=== PATIENT | female | born 1955 | race Caucasian/White ===

== ENCOUNTER 2017-09-13 05:29 | Day surgery (SDC) | payer OTHER ==
[~2017-09-13] VITALS: Ht 160 cm; Wt 81.6 kg
--- NOTE | ~2017-09-13 | OP ---
PATIENT NAME: ISMAEL BAÑUELOS MEDICAL RECORD: [id number] LOCATION:[facility] ADMISSION DATE: SURGEON: RUPERTO YANEZ MD DATE OF OPERATION: 09/13/2017 PREOPERATIVE DIAGNOSIS: Anal polypoid mass. POSTOPERATIVE DIAGNOSIS: Anal polypoid mass. PROCEDURE: Transanal excision of an anal polypoid mass. SURGEON: Ruperto Yanez MD SPEECH WRITER: None. BLOOD LOSS: Minimal. ANESTHESIA: General. COMPLICATIONS: None. The risks, possible complications and alternatives to the procedure were explained to the patient. She elects to proceed. OPERATIVE COURSE: The patient was conveyed to the operating room electively on 09/13/2017. General anesthesia was induced by the anesthesia staff. The patient was placed in the lithotomy position. The anus and perianal areas were sterilely prepped and draped. Utilizing the U-shaped anal retractors, I examined the anus and the lower rectum. I easily identify the polypoid mass, which was located at 7 o'clock. While grasping the polypoid mass and retracting it medially, I was able to excise it with the electrocautery. I then closed the defect with a running locking 3-0 Vicryl suture. A combination of sterile preparation and Marcaine were used to infiltrate the perianal tissues. Gelfoam was applied within the anus and lower rectum. A topical anesthetic ointment was applied to external hemorrhoids. The patient was then extubated and conveyed to the post-anesthesia care unit where she was in stable condition. TRANSINT:[id number] Voice Confirmation ID: [id number] DOCUMENT ID: [id number] RUPERTO YANEZ MD at 1717 CC: [id number] DICTATION DATE: 09/13/17 1120 [employer]TE[employer] SPECIALIST: 09/13/17 1211 [facility] 09/13/17 [place] [id number]
[2017-09-13 06:59] LABS: HEMATOCRIT 40.5 % (36.0-48.0); HEMOGLOBIN 13.5 g/dL (12-16); MCH 31.8 pg (26.0-34.0); MCHC 33.3 g/dL (31.0-37.0); MCV 95.5 fL (80.0-100.0); MEAN PLATELET VOLUME 9.8 fL (7.4-10.4); RBC 4.24 10x6/uL (4.00-5.40); RDW 12.7 % (11.5-14.5); WBC 4.7 10x3/uL (4.8-10.8)
[2017-09-13] MEDS ORDERED: ALAVERT10 MG/TAB PO (07:04)
[2017-09-13] MEDS ORDERED: ALENDRONATE SOD70 MG PO (07:04)
[2017-09-13] MEDS ORDERED: CALTRATE 600 M600 M1 PO (07:05)
[2017-09-13] MEDS ORDERED: ASPIRIN81 MG PO (07:06)
[2017-09-13] MEDS ORDERED: SINGULAIR10 MG PO (07:06)
[2017-09-13] MEDS ORDERED: ACETAMINOPHEN325 MG PO (07:07)
[2017-09-13] MEDS ORDERED: SYSTANE 0.3-0.4%5 ML (07:07)
[2017-09-13] MEDS ORDERED: ARTIFICIAL TEAR15 ML LEFT EYE (07:08)
[2017-09-13] MEDS ORDERED: PROTONIX20 MG PO (07:08)
[2017-09-13] MEDS ORDERED: QVAR8.7 G1 INH (07:09)
[2017-09-13] MEDS ORDERED: ACULAR LS5 ML EACH EYE (07:09)
[2017-09-13] MEDS ORDERED: PROAIR HFA8.5 GM INH (07:10)
[2017-09-13] MEDS ORDERED: PHENOBARBITAL32.4 MG PO (07:10)
[2017-09-13] MEDS ORDERED: VITAMIN D31000 UNIT PO (07:11)
[2017-09-13 07:13] VITALS: BP 126/72; Ht 160 cm; Wt 81.6 kg
== END 2017-09-13 12:35 | disposition home or self-care (01) ==
LOC: D.OPS 05:29 → D.SDCHOLD 05:32 → D.OPS 08:45
PROVIDERS: Anesthesiology
DX: K62.0 Anal polyp (principal); Z86.73 Personal history of transient ischemic attack (TIA), and cerebral infarction without residual deficits; Z01.812 Encounter for preprocedural laboratory examination